=== PATIENT | male | born 1970 | race Caucasian/White ===

== ENCOUNTER → 2017-01-30 | Outpatient (CLI) | payer OTHER ==
[~2017-01-30] MED LIST: CELE200C PO; HYDR-3240 PO; TRAM50TA2 PO
[2017-01-30 16:14] LABS: HEMOGLOBIN 13.8 g/dL (13.7-18.0)
[2017-01-30 16:27] LABS: ASPARTATE AMINO TRANSFERASE 20 U/L (15-37); BLOOD UREA NITROGEN 19 mg/dL (7-18)
== END | disposition home or self-care (01) ==
LOC: STAR 15:06
PROVIDERS: ATTEND Neurological Surgery
DX: Z01.818 Encounter for other preprocedural examination (principal); M54.2 Cervicalgia; G95.9 Disease of spinal cord, unspecified
CPT/HCPCS: 36415; 71020; 80053; 85025; 85610; 85730; 93005